=== PATIENT | female | born 1970 | race Caucasian/White ===

== ENCOUNTER 2019-07-11 13:02 | Day surgery (SDC) | payer MEDICAID ==
[~2019-07-11 13:02] MED LIST: Buffered Lidocaine 1% SYRIN* 1 ML/SYRINGE INTRADERM ONE; Famotidine IV* 10 MG/ML 2 ML (20 mg) IV ONE; Lactated Ringers 1000 ML Bag* 1,000 ML IV SCH; Ondansetron INJ* 2 MG/ML VIAL IV ONE
[2019-07-11] MEDS ORDERED: Ketorolac INJ* 30 MG/ML 1 ML VIAL ONE ×2 (13:16)
[2019-07-11] MEDS ORDERED: Propofol* 10 MG/ML 20 ML BTL ONE ×4 (13:16→15:20)
[2019-07-11] MEDS ORDERED: Ondansetron INJ* 2 MG/ML VIAL ONE ×4 (13:16→13:29)
[2019-07-11] MEDS ORDERED: Dexamethasone IV* 4 MG/ML 1 ML (4 MG) ONE ×2 (13:16)
[2019-07-11] MEDS ORDERED: Lidocaine 2% PF * 5 ML VIAL ONE ×2 (13:16)
[2019-07-11] MEDS ORDERED: fentaNYL* 50 MCG/ML 2 ML VIAL (100 MCG VIAL) ONE ×2 (13:16)
[2019-07-11] MEDS ORDERED: KETAMINE HCL* 50 MG/ML 10 ML VIAL ONE ×2 (13:16)
[2019-07-11] MEDS ORDERED: Midazolam* 1 MG/ML 5 ML VIAL (5 MG) ONE ×2 (13:17)
[2019-07-11] MEDS ORDERED: ceFAZolin 2 GM PREMIX in ORs 2 GM/50 ML BAG ONE ×2 (13:29)
[2019-07-11] MEDS ORDERED: Famotidine IV* 10 MG/ML 2 ML (20 mg) ONE ×2 (13:30)
[2019-07-11] MEDS ORDERED: Bupivacaine 0.25% SDV PF* 10 ML VIAL INJ ONE ×2 (14:29)
[2019-07-11] MEDS ORDERED: Lidocaine 1% w EPI 1:100,000* MDV 20 ML VIAL ONE ×3 (14:29→14:39)
[2019-07-11] MEDS ORDERED: Midazolam* 1 MG/ML 2 ML VIAL (2 MG) ONE ×2 (14:51)
[2019-07-11] MEDS ORDERED: Naloxone* 0.4 MG/ML 1 ML VIAL IV PRN (15:29)
[2019-07-11] MEDS ORDERED: fentaNYL* 50 MCG/ML 2 ML VIAL (100 MCG VIAL) IV PRN (15:29)
[2019-07-11] MEDS ORDERED: oxyCODONE/Acetamin 5/325 MG* TAB PO PRN (15:29)
[2019-07-11] MEDS ORDERED: Ondansetron INJ* 2 MG/ML VIAL IV PRN (15:29)
[2019-07-11 16:34] VITALS: BP 121/75
== END 2019-07-11 16:57 | disposition home or self-care (01) ==
LOC: OR 13:02
PROVIDERS: ATTEND Plastic Surgery
DX: L76.32 Postprocedural hematoma of skin and subcutaneous tissue following other procedure (principal); Z85.3 Personal history of malignant neoplasm of breast; K21.9 Gastro-esophageal reflux disease without esophagitis; E06.3 Autoimmune thyroiditis; M19.90 Unspecified osteoarthritis, unspecified site; F43.10 Post-traumatic stress disorder, unspecified
CPT/HCPCS: 88305; J0690; J1100; J1885; J2250; J2405; J2704; J3010; J3490

== ENCOUNTER 2020-01-02 05:40 | Day surgery (SDC) | payer MEDICAID ==
--- NOTE | 2019-12-27 19:29 | HP ---
HISTORY AND PHYSICAL: DATE OF SURGERY/ADMISSION: 01/02/20 DATE OF OFFICE VISIT: 12/27/19 SURGEON: Aria Silverman MD * (DICTATED BY LUCY HOROWITZ) PROCEDURE: Left knee ganglion cyst excision. CHIEF COMPLAINT: Left knee pain. HISTORY OF PRESENT ILLNESS: Ms. Jones is a 49-year-old female with 5 years of left lateral knee mass which is painful. An MRI confirms a large ganglion cyst and she has elected to have it excised. PAST MEDICAL HISTORY: History of breast cancer, PTSD, anxiety, depression, GERD , Bess's disease. PAST SURGICAL HISTORY: Right knee arthroscopy, uterine ablation, total hysterectomy, mastectomy, breast implants and explantation, cyst removal from the left knee. CURRENT MEDICATIONS: 1. Medical marijuana. 2. Anastrozole 1 mg a day. 3. Calcium with vitamin D. 4. Tylenol. ALLERGIES: Adhesive. FAMILY HISTORY: Cancer and stroke. SOCIAL HISTORY: She is a 49-year-old female. She lives with her . She smokes approximately 3 cigarettes a day. Denies use of drugs. Uses occasional alcohol. REVIEW OF SYSTEMS: A complete 14-point review of systems was reviewed with the patient. It was positive for GERD, nausea, and vomiting after anesthesia. She denies history of a DVT, PE, hepatitis, HIV, or anesthesia problems. PHYSICAL EXAMINATION GENERAL: She is well developed, well nourished, in no acute distress. VITAL SIGNS: She is 67 inches tall, weight 138 pounds. Her blood pressure is 121/78, heart rate 76. HEENT: Normocephalic and atraumatic. NECK: Supple. No palpable lymph nodes. PULMONARY: The lungs are clear to auscultation bilaterally. CARDIO: Regular rate and rhythm. Strong S1 and S2. ABDOMEN: Soft, nontender, and nondistended. MUSCULOSKELETAL: Left lower extremity, the skin is intact. There is a palpable mass along her lateral knee near the fibular head measuring approximately 7 x 6 cm in size. It is soft and compressible with a firm rubbery consistency and it is tender to palpation. There is no significant joint effusion. Range of motion is 5 to 125 degrees of flexion. She is able to dorsiflex and plantarflex with a 2+ dorsalis pedis pulse. NEUROLOGIC: She is alert and oriented x3. ASSESSMENT AND PLAN: Ms. Jones is a 49-year-old female with a ganglion cyst of her left knee. She has elected to proceed with a left knee ganglion cyst excision which is scheduled for 01/02/[address] Silverman discussed risks and benefits of the surgery at today's visit and all of her questions were answered. She will follow up with Dr. Silverman 2 weeks after the surgery. LUCY HOROWITZ [id number]/[facility] #: [id number] MTDDorene
[~2020-01-02 05:40] MED LIST changes: -Famotidine IV* 10 MG/ML 2 ML (20 mg) IV ONE; -Lactated Ringers 1000 ML Bag* 1,000 ML IV SCH; -Ondansetron INJ* 2 MG/ML VIAL IV ONE
[2020-01-02] MEDS ORDERED: fentaNYL* 50 MCG/ML 2 ML VIAL (100 MCG VIAL) IV PRN (05:45)
[2020-01-02] MEDS ORDERED: PROCHLORPERAZINE INJ 5 MG/ML 2 ML VIAL IV PRN (05:45)
[2020-01-02] MEDS ORDERED: Naloxone* 0.4 MG/ML 1 ML VIAL IV PRN (05:45)
[2020-01-02] MEDS ORDERED: oxyCODONE TAB* 5 MG TAB PO PRN (05:45)
[2020-01-02] MEDS ORDERED: Ondansetron ODT TAB* 4 MG ONE ×2 (05:58)
[2020-01-02] MEDS ORDERED: Famotidine IV* 10 MG/ML 2 ML (20 mg) ONE ×2 (05:58)
[2020-01-02] MEDS ORDERED: DiMENhydriNATE IV* 50 MG/ML VIAL ONE ×2 (05:58)
[2020-01-02] MEDS ORDERED: ceFAZolin 2 GM PREMIX in ORs 2 GM/50 ML BAG ONE ×2 (05:58)
[2020-01-02] MEDS ORDERED: Lactated Ringers 1000 ML Bag* 1,000 ML IV SCH (06:00)
[2020-01-02] MEDS ORDERED: Famotidine IV* 10 MG/ML 2 ML (20 mg) IV ONE (06:00)
[2020-01-02] MEDS ORDERED: Ondansetron ODT TAB* 4 MG PO ONE (06:00)
[2020-01-02] MEDS ORDERED: DiMENhydriNATE IV* 50 MG/ML VIAL IV PUSH ONE (06:00)
[2020-01-02] MEDS ORDERED: Bupivacaine 0.5%* 50 ML MDV VIAL ONE ×2 (06:54)
[2020-01-02] MEDS ORDERED: fentaNYL* 50 MCG/ML 2 ML VIAL (100 MCG VIAL) ONE ×3 (07:08→07:30)
[2020-01-02] MEDS ORDERED: KETAMINE HCL* 50 MG/ML 10 ML VIAL ONE (07:08)
[2020-01-02] MEDS ORDERED: Midazolam* 1 MG/ML 5 ML VIAL (5 MG) ONE (07:08)
[2020-01-02] MEDS ORDERED: Midazolam* 1 MG/ML 2 ML VIAL (2 MG) ONE ×2 (07:30)
[2020-01-02] MEDS ORDERED: Ondansetron INJ* 2 MG/ML VIAL ONE ×2 (08:22)
[2020-01-02] MEDS ORDERED: Lidocaine 2% PF* 10 ML AMP ONE ×2 (08:22)
[2020-01-02] MEDS ORDERED: Ketorolac INJ* 30 MG/ML 1 ML VIAL ONE ×2 (08:22)
[2020-01-02] MEDS ORDERED: Propofol* 10 MG/ML 20 ML BTL ONE ×2 (08:22)
[2020-01-02] MEDS ORDERED: Dexamethasone IV* 4 MG/ML 1 ML (4 MG) ONE ×2 (08:22)
[2020-01-02] MEDS ORDERED: oxyCODONE TAB* 5 MG TAB ONE ×3 (09:06→10:02)
[2020-01-02] MEDS ORDERED: HYDROmorphone INJ1* 1 MG/ML SYRINGE ONE ×2 (09:23)
[2020-01-02] MEDS: HYDROmorphone INJ1* 1 MG/ML SYRINGE IV PRN ×2 (09:28→09:35)
[2020-01-02 11:00] VITALS: BP 120/76
--- NOTE | 2020-01-02 21:25 | OP ---
DATE OF OPERATION: 01/02/20 [facility] DATE OF : 68 SURGEON: Aria Silverman MD SALES REPRESENTATIVE METALS: LUCY Cagle. Ms. Pitts did help throughout the procedure in preparation of the leg, wound retraction, manipulation of the knee, and wound closure. ANESTHESIOLOGIST: Dr. Mcqueen. ANESTHESIA: General. PRE-OP DIAGNOSIS: Left knee ganglion cyst. POST-OP DIAGNOSIS: Left knee ganglion cyst. OPERATIVE PROCEDURE: Left ganglion cyst excision at the lateral knee, subfascial excision with greater than 7 cm soft tissue mass. COMPLICATIONS: None. TOURNIQUET TIME: 22 minutes. ESTIMATED BLOOD LOSS: 50 cc. SPECIMEN: Soft tissue mass was excised from the left lateral knee and sent to Pathology for evaluation. BRIEF HISTORY/INDICATION: Ms. Jones is a 49-year-old female with 2 years of increasingly large mass along the lateral knee. Multiple images indicated that was a benign ganglion cyst. She did have the cyst excised over 2 years ago and it did reoccur. She started to have significant pain associated with the cyst and the cyst enlarged in size over time. She requested this to be excised. Informed consent was discussed with the patient. She understood the risks of surgery included but were not limited to bleeding, infection, damage to nearby structures, continued pain, need for further surgery, recurrence of the mass, stroke, heart attack, blood clot, and . She wished to proceed. INTRAOPERATIVE FINDINGS: Intraoperatively, the patient was noted to have what appeared to be a ganglion cyst with clear jelly-like fluid inside. This did measure approximately 7.5 x 7 cm in size. The cyst was subcutaneous laterally at the knee and extended subfascially under the iliotibial fascial band and did communicate near the posterolateral knee joint. DESCRIPTION OF PROCEDURE: Ms. Jones was identified in the preanesthesia unit. Her left lower extremity was marked as the correct operative side. Informed consent was signed and placed in the chart. The patient was taken to the operating room and placed under anesthesia without difficulty. A tourniquet was placed on the left thigh. Left lower extremity was prepped and draped in the usual sterile fashion. Preop time-out was made to correctly identify the patient, side, and site. Appropriate perioperative antibiotics were given within 1 hour of incision. Tourniquet was inflated and total tourniquet time for the procedure was 22 minutes. The patient's prior incision was utilized. Incision was approximately 5 cm in length. Once the skin was incised, the soft tissue mass was immediately visualized. This appeared to be a ganglion. Tenotomies were used to dissect around the mass. The mass did extend subfascially under the iliotibial fascia. The mass was filled with jelly-like clear fluid consistent with a ganglion cyst. The mass was carefully excised in its entirety. The mass extended subfascially and along the posterolateral corner of the knee. The mass was excised without difficulty and sent to Pathology. Electrocautery was used to coagulate the area near the posterolateral corner of the knee joints. Next, the wound was copiously irrigated and the tourniquet was turned down. The disruption of the fascia was closed in interrupted #1 Vicryls. The rest of the incision was closed in a layered fashion using 0 and 2-0 Vicryls. Skin was closed using Monocryl and Dermabond. Sterile Adaptic, 4x4s, and paper tape were used to cover the incision. The patient's anesthesia was reversed without difficulty. She is taken to the PACU in stable condition. Intended weight-bearing will be weightbearing as tolerated. Intended DVT prophylaxis will be aspirin. She will follow up in 2 weeks' time for recheck. [id number]/[facility] #: [id number] ALANA
== END 2020-01-02 10:20 | disposition home or self-care (01) ==
LOC: OR 05:40
PROVIDERS: ATTEND Orthopaedic Surgery Adult Reconstructive Orthopaedic Surgery
DX: M67.462 Ganglion, left knee (principal); E06.3 Autoimmune thyroiditis; M19.90 Unspecified osteoarthritis, unspecified site; F41.8 Other specified anxiety disorders; Z85.3 Personal history of malignant neoplasm of breast; F43.10 Post-traumatic stress disorder, unspecified; K21.9 Gastro-esophageal reflux disease without esophagitis; F17.210 Nicotine dependence, cigarettes, uncomplicated
CPT/HCPCS: 88304; A9270-GY; J0690; J1100; J1170; J1240; J1885; J2001; J2250; J2405; J2704; J3010; J3490